=== PATIENT | female | born 1950 | race Caucasian/White ===

== ENCOUNTER 2018-10-26 07:24 | Day surgery (SDC) | payer OTHER, MEDICARE ==
[2018-10-26 08:37] VITALS: TEMP 97.9
[2018-10-26 09:33] VITALS: BP 104/68; PULSE 90
--- NOTE | 2018-10-29 15:09 | PATH ---
Surgical Pathology Report Patient Name: CORKY COE [facility]. Rec. #: [id number] /Age/Gender: 1950 (Age: 68) / F Account: [id number] Location: [facility]-ENDOSCOPY Taken: 10/26/2018 Received: 10/26/2018 Reported: 10/29/2018 Physicians: Lon Parmar M.D. Specimen(s) Received A: TRANSVERSE COLON POLYP B: ILEOCECAL VALVE Clinical History Adenoma surveillance Postoperative diagnosis: Colon polyps Final Diagnosis A. TRANSVERSE COLON, POLYP, BIOPSY: TUBULAR ADENOMA. B. ILEOCECAL VALVE, POLYP, BIOPSY: SESSILE SERRATED POLYP. Electronically Signed Yola Alberts M.D. Gross Description A. Received in formalin, labeled "biopsy transverse colon polyp" is a mari, irregular portion of soft tissue measuring 0.4 cm. in greatest dimension. The specimen is submitted in toto in one cassette. B. Received in formalin, labeled "biopsy ileocecal valve polyp" are 2 mari, irregular portions of soft tissue measuring 0.2 and 0.3 cm. in greatest dimension. The specimens are submitted in toto in one cassette. 10/26/201810/26/2018
== END 2018-10-26 09:58 | disposition home or self-care (01) ==
LOC: JASU-ENDO 07:24
PROVIDERS: ATTEND Internal Medicine Gastroenterology
PROC: 0DBL8ZX Excision of Transverse Colon, Via Natural or Artificial Opening Endoscopic, Diagnostic (ICD-10-PCS; 2018-10-26)
PROC: 0DBG8ZX Excision of Left Large Intestine, Via Natural or Artificial Opening Endoscopic, Diagnostic (ICD-10-PCS; 2018-10-26)
PROC: 0DBC8ZX Excision of Ileocecal Valve, Via Natural or Artificial Opening Endoscopic, Diagnostic (ICD-10-PCS; principal; 2018-10-26 08:00)
DX: Z12.11 Encounter for screening for malignant neoplasm of colon (principal); Z86.010 Personal history of colon polyps; D12.3 Benign neoplasm of transverse colon; K57.30 Diverticulosis of large intestine without perforation or abscess without bleeding
CPT/HCPCS: 88305-TC